=== PATIENT | female | born 1980 | race Caucasian/White ===

== ENCOUNTER 2020-01-11 16:26 | Emergency (ER) | payer OTHER ==
[~2020-01-11] VITALS: Ht 165.1 cm; Wt 86.0 kg
[2020-01-11] MEDS ORDERED: PNV1TABL57 PO (16:44)
[2020-01-11] MEDS ORDERED: ONDANSETRON HCL 4 MG TABLET PO ONE ×2 (17:30→20:15)
[2020-01-11] MEDS ORDERED: IBUPROFEN 600 MG TABLET PO ONE (17:30)
[2020-01-11 18:20] LABS: BASOPHILS % (AUTO) 0.3 % (0.0-2.0); EOSINOPHILS % (AUTO) 0.8 % (1.0-6.0); HEMATOCRIT 41.6 % (36-46); HEMOGLOBIN 14.1 g/dL (12.0-16.0); LYMPHOCYTES # (AUTO) 2.2 K/uL (1.0-4.8); LYMPHOCYTES % (AUTO) 21.6 % (22.0-44.0); MEAN CORPUSCULAR HEMOGLOBIN 30.4 pg (26.0-34.0); MEAN CORPUSCULAR VOLUME 90 fL (80-100); MONOCYTES # (AUTO) 0.8 K/uL (0.1-1.0); MONOCYTES % (AUTO) 7.3 % (2.0-9.0); NEUTROPHILS # (AUTO) 7.2 K/uL (1.8-7.7); PLATELET COUNT (AUTO) 248 K/uL (150-450); RED BLOOD CELL COUNT(AUTO) 4.64 MIL/uL (4.00-5.20); RED CELL DISTRIBUTION WIDTH 13.5 % (11.5-14.5)
[2020-01-11 18:42] LABS: ANION GAP 10 mmol/L (8-16); CALCIUM, TOTAL 8.4 mg/dL (8.8-10.5); CARBON DIOXIDE 23 mmol/L (22-29); CHLORIDE 102 mmol/L (98-107); CREATININE 0.79 mg/dL (0.60-1.30); GLOMERULAR FILTR. RATE CALC > 60 mL/min (>60); GLUCOSE,RANDOM 90 mg/dL (70-110); SODIUM SERUM 135 mmol/L (136-145); UREA NITROGEN, BLOOD 11 mg/dL (7-18)
[2020-01-11 18:55] LABS: ALANINE AMINOTRANSFERASE 34 U/L (12-78); ALBUMIN 2.6 g/dL (3.4-5.0); ALKALINE PHOSPHATASE 39 U/L (46-116); ASPARTATE AMINOTRANSFERASE 22 U/L (15-37); BILIRUBIN,TOTAL 0.3 mg/dL (0.1-1.0); HCG,QUANTITATIVE 7 mIU/mL (0-6); LIPASE 59 U/L (73-393); TOTAL PROTEIN, SERUM 5.9 g/dL (6.4-8.2)
[2020-01-11 19:04] LABS: APPEARANCE,URINE CLOUDY (CLEAR); GLUCOSE, URINE (UA) NEGATIVE (NEGATIVE); KETONES,URINE 40 mg/dL (NEGATIVE); LEUKOCYTE ESTERASE ,URINE SMALL (NEGATIVE); NITRATE,URINE NEGATIVE (NEGATIVE); OCCULT BLOOD,URINE TRACE (NEGATIVE); PROTEIN,URINE NEGATIVE (NEGATIVE); UROBILINOGEN,URINE 0.2 mg/dL (<=1.0)
[2020-01-11 19:06] LABS: BILIRUBIN,URINE PRELIM. POSITIVE (NEGATIVE)
[2020-01-11 19:13] LABS: BACTERIA,URINE Few /HPF (None Seen); SQUAMOUS EPITHELIAL CELL,UR Many /LPF (None Seen)
[2020-01-11 21:20] VITALS: BP 124/68
== END 2020-01-11 21:35 | disposition home or self-care (01) ==
LOC: EMS 16:28
DX: N98.1 Hyperstimulation of ovaries (principal)
CPT/HCPCS: 36415; 74176; 80053; 81001; 83690; 84702; 85025; 87077; 87086; 99285; Q0162